=== PATIENT | female | born 1950 | race Caucasian/White ===

== ENCOUNTER 2018-02-18 08:24 | Emergency (ER) | payer BC, OTHER ==
[2018-02-18 08:39] VITALS: BMI 24.2
[2018-02-18 09:46] LABS: BASO % 0.2 % (0-2.0); EOS % 0.2 % (0-4.5); HEMATOCRIT 46.1 % (32.4-45.2); HEMOGLOBIN 15.7 GM/dL (10.7-15.3); MCH 30.2 pg (25.7-33.7); MEAN CELL VOLUME 88.7 fl (80-96); MEAN PLT VOLUME 7.2 fl (7.5-11.1); MONO % 8.4 % (3.8-10.2); NEUT % 79.2 % (42.8-82.8); PLATELET COUNT 379 K/MM3 (134-434); RDW 14.1 % (11.6-15.6); WHITE BLOOD COUNT 13.5 K/mm3 (4.0-10.0)
--- NOTE | 2018-02-18 10:13 | PDOC ---
History of Present Illness - General Stated Complaint: RECTAL BLEED History Source: Patient Exam Limitations: No Limitations - History of Present Illness Travel History: No Initial Comments: 02/18/18 12:38 67-year-old female presents to ED with complaints of intermittent constipation for the past 2 weeks and took laxative which produced normal bowel movements last one being yesterday morning. Patient states by the afternoon had sharp cramping to her lower abdomen associated mild nausea and this morning had 2 episodes of diarrhea followed by explosive bright red blood with small shreds of tissue. Patient denies exertion of moving her bowels fever, chills, or abdominal distention. Patient does state history of diverticulitis but states symptoms are not similar to previous episodes. Patient states last colonoscopy was 4 years ago performed by Dr. Gotti. Patient states history of family colon cancer denies any weight loss, change in appetite, or rectal bleeding prior to today. Patient does state history of hemorrhoids and has mild complaints of rectal pressures since onset. Abdominal Pain Onset Location: reports: RLQ, LLQ Pain Radiation: reports: no radiation Activities at Onset: reports: none Aggravating Factors: improves with: None Alleviating Factors: improves with: None Past History - Travel Traveled outside of the country in the last 30 days: No Close contact w/someone who was outside of country & ill: No - Past Medical History Allergies/Adverse Reactions: Allergies Allergy/AdvReac Type Severity Reaction Status Date / Time No Known Allergies Allergy Verified 03/16/15 22:26 Home Medications: Ambulatory Orders Aspirin [ASA -] 81 mg PO DAILY 01/23/13 Simvastatin [Zocor -] 5 mg PO HS 01/23/13 Amlodipine Besylate 5 mg PO DAILY 03/16/15 Ascorbic Acid [Vitamin C] 1,000 mg PO DAILY 02/18/18 Lisinopril/Hydrochlorothiazide [Zestoretic 20-12.5 mg Tablet] 1 each PO DAILY Vitamin D3/Vitamin K2 (Mk4) [K2 Plus D3 Tablet] 1 each PO DAILY 02/18/18 COPD: No GI Disorders: Yes (DIVERTICULITIS) HTN: Yes Hypercholesterolemia: Yes - Immunization History Immunization Up to Date: Yes - Suicide/Smoking/Psychosocial Hx Smoking History: Never smoked Have you smoked in the past 12 months: No Number of Cigarettes Smoked Daily: 0 Cigars Per Day: 0 Information on smoking cessation initiated: No Hx Alcohol Use: No Drug/Substance Use Hx: No Substance Use Type: None Patient Lives Alone: No Lives with/in: spouse/SO Abd/GI Specific PMHX - Complaint Specific PMHX Diverticulitis: Yes Review of Systems - Review of Systems Able to Perform ROS?: No Constitutional: No: Symptoms Reported HEENTM: No: Symptoms Reported Respiratory: No: Symptoms reported ABD/GI: Yes: Constipated, Diarrhea, Rectal Bleeding : No: Symptoms Reported Musculoskeletal: No: Symptoms Reported Integumentary: No: Symptoms Reported Neurological: No: Symptoms reported Endocrine: No: Symptoms Reported Hematologic/Lymphatic: No: Symptoms Reported *Physical Exam - Vital Signs Last Vital Signs Temp Pulse Resp BP Pulse Ox 98 F 94 H 20 152/100 99 02/18/18 08:34 02/18/18 08:34 02/18/18 08:34 02/18/18 08:34 02/18/18 08:34 - Physical Exam General Appearance: Yes: Nourished, Appropriately Dressed. No: Apparent Distress HEENT: negative: Pale Conjunctivae Respiratory/Chest: positive: Lungs Clear, Normal Breath Sounds. negative: Respiratory Distress, Accessory Muscle Use Cardiovascular: positive: Regular Rhythm, Regular Rate. negative: Murmur Gastrointestinal/Abdominal: positive: Normal Bowel Sounds, Soft, Tenderness. negative: Distended, Guarding, Rebound, Hernia, Mass Rectal Exam: positive: normal rectal tone. negative: heme positive stool ( pinkish stool on withdrawn glove), hemorrhoids Integumentary: positive: Normal Color, Warm, Moist Neurologic: positive: Motor Strength 5/5 (ambulatory) Moderate Sedation - Procedure Monitoring Vital Signs: Procedure Monitoring Vital Signs Temperature 98 F 02/18/18 08:34 Pulse Rate 94 H 02/18/18 08:34 Respiratory Rate 20 02/18/18 08:34 Blood Pressure 152/100 02/18/18 08:34 O2 Sat by Pulse Oximetry (%) 99 02/18/18 08:34 ED Treatment Course - LABORATORY CBC & Chemistry Diagram: 02/18/18 09:35 02/18/18 09:35 - ADDITIONAL ORDERS Additional order review: 02/18/18 09:35 RBC 5.20 MCV 88.7 MCHC 34.0 RDW 14.1 MPV 7.2 L Neutrophils % 79.2 D Lymphocytes % 12.0 D Monocytes % 8.4 Eosinophils % 0.2 D Basophils % 0.2 - RADIOLOGY Radiology Studies Ordered: Category Date Time Status ABDOMEN & PELVIS CT WITH CONTR [CT] Stat CT Scan 02/18/18 09:19 Ordered Medical Decision Making - Medical Decision Making 02/18/18 11:41 Chief complaint: Rectal bleeding with abdominal cramping since last evening. Followed by Dr. Miles, GI. Exam: No abdominal tenderness vital signs stable. pinkish stool on withdrawn glove in rectal vault Plan: labs, ct w/ po/iv contrast, urine, stool for occult blood 02/18/18 12:46 Laboratory Tests 02/18/18 02/18/18 02/18/18 09:25 09:35 09:35 WBC 13.5 H Hgb 15.7 H Hct 46.1 H MPV 7.2 L Absolute Neuts (auto) 10.7 H Neutrophils % 79.2 D Lymphocytes % 12.0 D PT with INR 11.10 INR 0.94 Sodium Potassium Chloride Carbon Dioxide Anion Gap BUN Creatinine Creat Clearance w eGFR Random Glucose Lactic Acid Calcium Total Bilirubin AST ALT Alkaline Phosphatase Total Protein Albumin Ur Specific [place] Urine Ketones Urine Nitrite Stool Occult Blood Negative Blood Type Antibody Screen 02/18/18 02/18/18 02/18/18 09:35 09:35 09:35 WBC Hgb Hct MPV Absolute Neuts (auto) Neutrophils % Lymphocytes % PT with INR INR Sodium 139 Potassium 4.7 Chloride 103 Carbon Dioxide 30 Anion Gap 5 L BUN 14 Creatinine 0.9 Creat Clearance w eGFR > 60 Random Glucose 116 H Lactic Acid 1.9 Calcium 9.4 Total Bilirubin 1.1 H AST 19 ALT 28 Alkaline Phosphatase 92 Total Protein 7.3 Albumin 4.2 Ur Specific [place] Urine Ketones Urine Nitrite Stool Occult Blood Blood Type O POSITIVE Antibody Screen Negative 02/18/18 11:00 WBC Hgb Hct MPV Absolute Neuts (auto) Neutrophils % Lymphocytes % PT with INR INR Sodium Potassium Chloride Carbon Dioxide Anion Gap BUN Creatinine Creat Clearance w eGFR Random Glucose Lactic Acid Calcium Total Bilirubin AST ALT Alkaline Phosphatase Total Protein Albumin Ur Specific [place] 1.004 L Urine Ketones Negative Urine Nitrite Negative Stool Occult Blood Blood Type Antibody Screen Pending abdominal CT. Patient disclosed that she ate beets and cranberries in the past week. 02/18/18 15:26 Patient states feeling better and eating lunch. Patient has no complaints except for mild nausea and intermittent cramping to the lower abdomen. CT shows no evidence of bowel obstruction, intra-abdominal abscess, acute appendicitis, diverticulitis, or evidence of acute bony pathology. Patient will be discharged home and told to follow-up with her primary teaching assistant Dr. Miles. 02/18/18 15:28 *DC/Admit/Observation/Transfer Diagnosis at time of Disposition: Lower abdominal pain - Discharge Dispostion Disposition: HOME Condition at time of disposition: Improved - Referrals Referrals: Jonny Hassan [Primary Care Provider] - Conner Miles MD [Staff Physician] - - Patient Instructions Printed Discharge Instructions: DI for Abdominal Pain-Adult, DI for Constipation Additional Instructions: At this time I recommend eating high-fiber diet increasing activity drinking plenty of water and follow up with primary teaching assistant. Please avoid foods that are red in color and observe for fever. If symptoms worsen please return to the nearest emergency department. - Post Discharge Activity
[2018-02-18 10:14] LABS: ALBUMIN 4.2 g/dl (3.4-5.0); ALK PHOS 92 U/L (45-117); ANION GAP 5 MMOL/L (8-16); BILIRUBIN,TOTAL 1.1 mg/dL (0.2-1); BLOOD UREA NITROGEN 14 mg/dL (7-18); CALCIUM 9.4 mg/dL (8.5-10.1); CHLORIDE 103 mmol/L (98-107); CO2 30 mmol/L (21-32); CREATININE 0.9 mg/dL (0.55-1.3); GLUCOSE,RANDOM 116 mg/dL (74-106); POTASSIUM 4.7 mmol/L (3.5-5.1); SGOT/AST 19 U/L (15-37); SGPT/ALT 28 U/L (13-61); SODIUM 139 mmol/L (136-145); TOT PROT 7.3 g/dl (6.4-8.2)
[2018-02-18 10:20] LABS: INR 0.94 (0.83-1.09); PROTHROMBIN TIME (PATIENT) 11.1 SEC (9.7-13.0)
[2018-02-18 11:42] LABS: URINE APPEARANCE CLEAR; URINE BILIRUBIN NEGATIVE (<2.0 mg/dL); URINE COLOR COLORLESS; URINE GLUCOSE (UA) NEGATIVE (NEGATIVE); URINE KETONE NEGATIVE (NEGATIVE); URINE LEUK ESTERASE NEGATIVE (NEGATIVE); URINE NITRITE NEGATIVE (NEGATIVE); URINE PROTEIN NEGATIVE (NEGATIVE); URINE UROBILINOGEN NEGATIVE mg/dL (0.2-1.0)
[2018-02-18] MEDS ORDERED: KETOROLAC TROMETHAMINE 30 MG/1 ML VIAL IVPUSH ONE (14:28)
[2018-02-18] MEDS ORDERED: ONDANSETRON 4 MG/2 ML VIAL IVPUSH ONE (14:28)
[2018-02-18] MEDS ORDERED: KETOROLAC TROMETHAMINE 30 MG/1 ML VIAL ONE (14:55)
[2018-02-18] MEDS ORDERED: ONDANSETRON 4 MG/2 ML VIAL ONE (14:55)
[2018-02-18 14:56] VITALS: BP 125/67; PULSE 84; TEMP 99.8
--- NOTE | 2018-02-18 16:56 | EKG ---
Test Reason : Blood Pressure : / mmHG Vent. Rate : 075 BPM Atrial Rate : 075 BPM P-R Int : 138 ms QRS Dur : 086 ms QT Int : 398 ms P-R-T Axes : 050 019 032 degrees QTc Int : 444 ms POOR DATA QUALITY, INTERPRETATION MAY BE ADVERSELY AFFECTED NORMAL SINUS RHYTHM POSSIBLE LEFT ATRIAL ENLARGEMENT BORDERLINE ECG WHEN COMPARED WITH ECG OF 23-JAN-2013 21:05, NON-SPECIFIC CHANGE IN ST SEGMENT IN ANTERIOR LEADS Confirmed by VALERIE STEIN MD ([id number]) on 02/18/2018 4:56:24 PM Referred By: Confirmed By:VALERIE STEIN MD
== END 2018-02-18 16:07 | disposition home or self-care (01) ==
LOC: JER 08:24
PROC: 3E0333Z Introduction of Anti-inflammatory into Peripheral Vein, Percutaneous Approach (ICD-10-PCS; principal; 2018-02-18)
PROC: 3E033GC Introduction of Other Therapeutic Substance into Peripheral Vein, Percutaneous Approach (ICD-10-PCS; 2018-02-18)
DX: R10.30 Lower abdominal pain, unspecified (principal); Z87.19 Personal history of other diseases of the digestive system; I10 Essential (primary) hypertension; E78.00 Pure hypercholesterolemia, unspecified
CPT/HCPCS: 36415; 74177-TC; 80053; 81003; 82272; 83605; 85025; 85610; 86850; 86900; 86901; 93005; 93010; 99284-25; Q9967